=== PATIENT | female | born 1980 | race American Indian/Alaskan Native ===

== ENCOUNTER 2020-05-29 07:07 | Emergency (ER) | payer BC ==
[2020-05-29 07:22] VITALS: BP 163/100
--- NOTE | 2020-05-29 07:26 | Emergency Department Report ---
ED General Adult HPI - General Chief complaint: Skin Rash Stated complaint: BITTEN Time Seen by Provider: 05/29/20 07:25 Source: patient Mode of arrival: Ambulatory Limitations: No Limitations - History of Present Illness Initial comments: 40-year-old female with a past medical history of hypertension and medication noncompliance presents to the ER today with complaints of insect bites to her dorsal right hand, volar left forearm, and the posterior right upper arm. And her right chest. Patient states that she noticed these insect bites this morning. She reports swelling, redness, itching and soreness to the sites. She states that she did not see or feel anything bite her. She denies any associated swelling to her face, tongue or throat. She denies any shortness of breath, cough or wheezing. She denies any other symptoms at this time. MD Complaint: Insect bites -: Sudden (this morning) - Related Data Previous Rx's Medication Instructions Recorded Last Taken Type cephALEXin [Keflex] 500 mg PO Q12HR #14 cap 05/29/20 Unknown Rx diphenhydrAMINE [Benadryl CAP] 25 mg PO Q6HR PRN #30 capsule 05/29/20 Unknown Rx predniSONE [Deltasone] 60 mg PO QDAY #12 tab 05/29/20 Unknown Rx Allergies Allergy/AdvReac Type Severity Reaction Status Date / Time No Known Allergies Allergy Unverified 05/29/20 07:19 ED Review of Systems ROS: Stated complaint: BITTEN Other details as noted in HPI Comment: All other systems reviewed and negative Constitutional: denies: chills, fever Eyes: denies: eye pain, eye discharge, vision change ENT: denies: ear pain, throat pain Respiratory: denies: cough, shortness of breath, wheezing Cardiovascular: denies: chest pain, palpitations Endocrine: no symptoms reported Genitourinary: denies: urgency, dysuria, discharge Musculoskeletal: denies: back pain, joint swelling, arthralgia Skin: rash, pruritus. denies: lesions Neurological: denies: headache, weakness, paresthesias Psychiatric: denies: anxiety, depression Hematological/Lymphatic: denies: easy bleeding, easy bruising ED Past Medical Hx - Past Medical History Previous Medical History?: Yes Additional medical history: Scoliosis - Social History Smoking Status: Never Smoker - Medications Home Medications: Home Medications Medication Instructions Recorded Confirmed Last Taken Type cephALEXin [Keflex] 500 mg PO Q12HR #14 cap 05/29/20 Unknown Rx diphenhydrAMINE [Benadryl CAP] 25 mg PO Q6HR PRN #30 capsule 05/29/20 Unknown Rx predniSONE [Deltasone] 60 mg PO QDAY #12 tab 05/29/20 Unknown Rx ED Physical Exam - General Limitations: No Limitations General appearance: alert, in no apparent distress - Head Head exam: Present: atraumatic, normocephalic, normal inspection - Eye Eye exam: Present: normal appearance, PERRL, EOMI Pupils: Present: normal accommodation - ENT ENT exam: Present: normal exam, mucous membranes moist - Neck Neck exam: Present: normal inspection, full ROM - Respiratory Respiratory exam: Present: normal lung sounds bilaterally. Absent: respiratory distress - Cardiovascular Cardiovascular Exam: Present: regular rate, normal rhythm, normal heart sounds - Neurological Exam Neurological exam: Present: alert, oriented X3, CN II-XII intact, normal gait - Skin Skin exam: Present: rash, other (Insect bites with associated moderate amount of swelling, erythema, warmth and soreness to palpation noted to the dorsal aspect of the right hand, the volar aspect of the left forearm, the posterior aspect o f the right upper arm, and mildly to the right upper chest.) ED Course Vital Signs 05/29/20 07:20 Temperature 98.5 F Pulse Rate 89 Respiratory 16 Rate Blood Pressure 163/100 O2 Sat by Pulse 100 Oximetry ED Medical Decision Making - Medical Decision Making 40-year-old female with a past medical history of hypertension and medication noncompliance presents to the ER today with complaints of insect bites to her dorsal right hand, volar left forearm, and the posterior right upper arm. And her right chest. Patient states that she noticed these insect bites this morning. She reports swelling, redness, itching and soreness to the sites. She states that she did not see or feel anything bite her. She denies any associated swelling to her face, tongue or throat. She denies any shortness of breath, cough or wheezing. She denies any other symptoms at this time. Based on physical exam I suspect patient has insect bites with localized allergic reaction, but will cover for any underlying associated bacterial infection. Discussed the suspected diagnosis with patient. Discussed treatment plan with patient. She is well-appearing, nontoxic, not in any acute pain or respiratory distress. She is neurologically intact with a normal gait. Patient blood pressure was noted to be elevated but she does admit to having a history of hypertension and she has been noncompliant with the medication for the past 6 months. She has no symptoms related to her elevated blood pressure. Recommend she follows up with her primary care doctor to get restarted on her medicines. Patient expressed understanding of instructions and agree with plan. Patient was stable at time of discharge. Critical care attestation.: If time is entered above; I have spent that time in minutes in the direct care of this critically ill patient, excluding procedure time. ED Disposition Clinical Impression: Allergic reaction to insect bite Disposition: DC-01 TO HOME OR SELFCARE Is pt being admited?: No Does the pt Need Aspirin: No Condition: Stable Instructions: Insect Bite, Adult, [id number], Allergies, Adult Additional Instructions: Take the prednisone, Keflex and the Benadryl as prescribed. You can apply ice to the areas. Follow-up with your primary care doctor in the next couple days especially for continued monitoring of your blood pressure. Return to the ER if your symptoms changes or worsens in any way Prescriptions: diphenhydrAMINE [Benadryl CAP] 25 mg PO Q6HR PRN #30 capsule PRN Reason: itching/swelling predniSONE [Deltasone] 60 mg PO QDAY #12 tab cephALEXin [Keflex] 500 mg PO Q12HR #14 cap Referrals: PRIMARY CARE, [Referring] - 3-5 Days Forms: Work/School Release Form(ED) Time of Disposition: 07:35
[2020-05-29] MEDS ORDERED: methylPREDNISolone Sod Succinate 125 MG/2 ML INJ IM ONE (07:29)
== END 2020-05-29 08:54 | disposition home or self-care (01) ==
LOC: ED 07:07
DX: T78.40XA Allergy, unspecified, initial encounter (principal); W57.XXXA Bitten or stung by nonvenomous insect and other nonvenomous arthropods, initial encounter; Y93.89 Activity, other specified; Y92.89 Other specified places as the place of occurrence of the external cause; Y99.8 Other external cause status
CPT/HCPCS: 96372; 99281; J2930

== ENCOUNTER 2021-04-06 08:52 | Emergency (ER) | payer BC ==
--- NOTE | 2021-04-06 11:36 | Emergency Department Report ---
Minor Respiratory - HPI Chief Complaint: Upper Respiratory Infection Stated Complaint: BODY ACHES Time Seen by Provider: 04/06/21 10:08 Duration: 5 Days Pain Location: Throat, Nose Severity: moderate Minor Respiratory: Yes Rhinorrhea, Yes Sore Throat, Yes Able to Tolerate Fluids, Yes Cough, Yes Fever, No Ear Pain, No Chest Pain, No Shortness of Breath Other History: 41-year-old -[place] female presents to the emergency room with a 6-day history of body aches, cough, fatigue, nasal congestion, fever, diarrhea nausea and vomiting. She denies any loss of taste. She has been taken [id number] Mucinex Tylenol ibuprofen. She has been vaccinated with Pfizer but not blistered. She has a history of hypertension currently takes triamterene. ED Review of Systems ROS: Stated complaint: BODY ACHES Other details as noted in HPI Comment: All other systems reviewed and negative ED Past Medical Hx - Past Medical History Previous Medical History?: Yes Additional medical history: Scoliosis - Surgical History Past Surgical History?: Yes - Social History Smoking Status: Never Smoker - Medications Home Medications: Home Medications Medication Instructions Recorded Confirmed Last Taken Type cephALEXin [Keflex] 500 mg PO Q12HR #14 cap 05/29/20 Unknown Rx diphenhydrAMINE [Benadryl CAP] 25 mg PO Q6HR PRN #30 capsule 05/29/20 Unknown Rx Azithromycin [Zithromax Z-HARVEY] 250 mg PO DAILY #6 tab 04/06/21 Unknown Rx Ondansetron [Zofran Odt] 4 mg PO Q8HR PRN #12 tab.rapdis 04/06/21 Unknown Rx Promethazine /Codeine 5 ml PO Q6H PRN #110 ml 04/06/21 Unknown Rx [Phenergan/Codeine 6.25-10 mg/5 ml] predniSONE [Deltasone] 60 mg PO QDAY #12 tab 04/06/21 Unknown Rx Minor Respiratory Exam - Exam General: Vital signs noted. No distress. Alert and acting appropriately. Neurologic: Alert and oriented, no deficits. Musculoskeletal: Unremarkable. ED Course Vital Signs 04/06/21 09:52 Temperature 100.2 F H Pulse Rate 110 H Respiratory 16 Rate Blood Pressure 145/99 [Left] O2 Sat by Pulse 98 Oximetry ED Medical Decision Making - Medical Decision Making 41-year-old -[place] female presents to the emergency room with a 6-day history of body aches, cough, fatigue, nasal congestion, fever, diarrhea nausea and vomiting. She denies any loss of taste. She has been taken [id number] Mucinex Tylenol ibuprofen. She has been vaccinated with Pfizer but not blistered. She has a history of hypertension currently takes triamterene. Patient was placed on Zofran, dexamethasone azithromycin and phentermine with codeine. Critical care attestation.: If time is entered above; I have spent that time in minutes in the direct care of this critically ill patient, excluding procedure time. ED Disposition Clinical Impression: Upper respiratory infection, Suspected COVID-19 virus infection Disposition: 01 HOME / SELF CARE / HOMELESS Is pt being admited?: No Does the pt Need Aspirin: No Condition: Stable Instructions: Viral Respiratory Infection, [id number], COVID-19: How to Protect Yourself and Others - CDC, Prevent the Spread of COVID-19 if You Are Sick - CDC, COVID-19 Frequently Asked Questions Additional Instructions: Your symptoms appear most consistent with a nonspecific viral syndrome. However, given this current pandemic, COVID-19 is in the differential of possibilities. Despite your previous negative COVID-19 test, I do recommend repeat outpatient Covid 19 testing. In the meantime, isolate/quarantine yourself and stay away from anyone who is elderly, immunocompromised or chronically ill. You can use ibuprofen every 6-8 hours and Tylenol every 4-8 hours, using the dosing on the back of the bottle, as needed for any fever or body aches. Return to the emergency department with any worsening of your symptoms, development of chest pain or shortness of breath, or with any acute distress. Prescriptions: predniSONE [Deltasone] 60 mg PO QDAY #12 tab Promethazine /Codeine [Phenergan/Codeine 6.25-10 mg/5 ml] 5 ml PO Q6H PRN #110 ml PRN Reason: cough Azithromycin [Zithromax Z-HARVEY] 250 mg PO DAILY #6 tab Ondansetron [Zofran Odt] 4 mg PO Q8HR PRN #12 tab.rapdis PRN Reason: Nausea And Vomiting Referrals: Your, primary care provider. [Other] - 3-5 Days Forms: Work/School Release Form(ED) Time of Disposition: 11:41
[2021-04-06 12:02] VITALS: BP 140/90
== END 2021-04-06 12:01 | disposition home or self-care (01) ==
LOC: ED 08:52
DX: J06.9 Acute upper respiratory infection, unspecified (principal); Z20.822 Contact with and (suspected) exposure to COVID-19; Z79.899 Other long term (current) drug therapy
CPT/HCPCS: 99282